=== PATIENT | female | born 1960 | race Caucasian/White ===

== ENCOUNTER 2022-07-07 11:46 | Inpatient (IN) | payer BC ==
[~2022-07-07] VITALS: Ht 162.6 cm; Wt 67.5 kg
[2022-07-07 12:32] LABS: COLLECTION METHOD CLEAN CATCH
[2022-07-07 12:40] LABS: HEMATOCRIT 43.9 % (37.0-47.0); HEMOGLOBIN 14.8 g/dl (12.5-16.0); MEAN CELL VOLUME 93 fl (80.0-100.0); MEAN CORPUSCULAR HEMOGLOBIN 31 pg (27-31); MEAN CORPUSCULAR HGB CONC 34 g/dl (33.0-37.0); MEAN PLATELET VOLUME 8.8 fl (7.4-10.4); PLATELET COUNT 300 K/mm3 (130-400); RED BLOOD COUNT 4.74 M/mm3 (4.10-5.30); REDCELL DISTRIBUTION WIDTH-CV 11.7 % (11.5-14.5)
[2022-07-07 12:57] LABS: ALBUMIN 2.7 gm/dL (3.4-4.8); BILIRUBIN,TOTAL 0.6 mg/dL (0.2-1.2); CALCIUM 9.1 mg/dL (8.4-10.2); CREATININE, serum 0.72 mg/dL (0.57-1.11); POTASSIUM 3.2 mmol/L (3.5-4.5); TOTAL PROTEIN 7.8 gm/dL (6.2-8.1)
[2022-07-07 13:04] LABS: URINE APPEARANCE Clear (CLEAR/HAZY); URINE BLOOD Negative (NEGATIVE); URINE COLOR Amber (YELLOW); URINE GLUCOSE Negative (NEGATIVE); URINE KETONE Negative (NEGATIVE); URINE NITRATE Negative (NEGATIVE); URINE PROTEIN(semi-quant) Negative (NEGATIVE); URINE UROBILINOGEN 0.2 E.U/dL (0.2-1.0)
[2022-07-07 13:12] LABS: MUCOUS Present (NOT PRESENT); URINE BACTERIA Rare /hpf (NONE SEEN); URINE RBC 20-50 /hpf (0-2)
[2022-07-07 13:18] LABS: BAND 1 % (0-10); BASOPHIL 1 % (0-2); EOSINOPHIL 2 % (0-4); LYMPHOCYTE 14 % (20.0-51.0); NEUTROPHILS 70 % (42.0-75.2); PLATELET ESTIMATE NORMAL (NORMAL)
[2022-07-07 16:00] VITALS: BP 134/74; PULSE 89; TEMP 98.3
[2022-07-07] MEDS ORDERED: DILANTIN 100MG100 MG PO (16:28)
[2022-07-07 17:22] VITALS: BP 134/76; PULSE 89; TEMP 98.3
--- NOTE | 2022-07-07 18:12 | NUR ---
Patient arrived to the unit from ER alert and oriented x4. IVF infusing on right A/C. VSS, Patient denies pain and requested to go the bathroom to void. Patient voided without difficulty. Patient oriented to room and how to use the call rapp.
[2022-07-07 19:35] VITALS: BP 125/70; PULSE 84; TEMP 97.5
[2022-07-07 23:41] VITALS: BP 99/61; PULSE 71; TEMP 97.8
--- NOTE | 2022-07-08 01:55 | NUR ---
SHIFT REPORT FROM DIANA CANTU. PATIENT IN BED ON ROOM ENTRY. C/O REFLUX/ CONSTANT BELCHING AND REQUESTS SOMETHING FOR THIS. DR. LOUIS IN TO SEE PATIENT AND DAILY PROTONIX STARTED. IVF AND IV ABX STARTED. DIET CHANGED TO CLEARS AND PATIENT TOLERATING WATER. DENIES PAIN OR PAIN CONTROL NEEDS. UP SEVERAL TIMES TO USE RESTROOM.
[2022-07-08 03:31] VITALS: BP 117/67; PULSE 68; TEMP 97.5
[2022-07-08 06:41] LABS: BASO # 0.1 K/mm3 (0.0-0.2); BASO % 0.6 % (0.0-2.0); EOS # 0.1 K/mm3 (0.0-0.7); EOS % 1.4 % (0.0-4.0); GRAN # 5.7 K/mm3 (1.4-6.5); HEMATOCRIT 40.3 % (37.0-47.0); HEMOGLOBIN 13.5 g/dl (12.5-16.0); LYMPH # 1.9 K/mm3 (1.2-3.4); LYMPH % 21.5 % (20.0-51.0); MEAN CELL VOLUME 93 fl (80.0-100.0); MEAN CORPUSCULAR HEMOGLOBIN 31 pg (27-31); MEAN CORPUSCULAR HGB CONC 34 g/dl (33.0-37.0); MEAN PLATELET VOLUME 9.2 fl (7.4-10.4); MONO # 0.9 K/mm3 (0.1-0.6); MONO % 9.8 % (1.7-9.3); PLATELET COUNT 282 K/mm3 (130-400); RED BLOOD COUNT 4.33 M/mm3 (4.10-5.30); REDCELL DISTRIBUTION WIDTH-CV 11.9 % (11.5-14.5)
[2022-07-08 07:06] LABS: ALBUMIN 2.3 gm/dL (3.4-4.8); BILIRUBIN,TOTAL 0.6 mg/dL (0.2-1.2); CALCIUM 8.7 mg/dL (8.4-10.2); CREATININE, serum 0.72 mg/dL (0.57-1.11); POTASSIUM 4.6 mmol/L (3.5-4.5); TOTAL PROTEIN 6.9 gm/dL (6.2-8.1)
[2022-07-08 08:00] VITALS: BP 125/72; PULSE 72; TEMP 98.2
--- NOTE | 2022-07-08 10:31 | NUR ---
SW met with patient to complete intake. Patient states that she lives in [facility] with her Abhi Toribio [phone]. Patient does not utilize DME, independent with ADL's, and does not utilize HH serives at this time. PCP is Dr. Archuleta, pharmacy is [facility], DPOA is and son Omi. Patient plans to return to her home upon DC. SW will continue to follow. DC plan: home
[2022-07-08 12:00] VITALS: BP 113/80; PULSE 71; TEMP 98.3
--- NOTE | 2022-07-08 12:56 | NUR ---
Proof Machine Operator offered prayer and support with patient.
[2022-07-08 16:04] VITALS: BP 105/79; PULSE 77; TEMP 98.4
[2022-07-08 19:46] VITALS: BP 121/77; PULSE 72; TEMP 97.8
--- NOTE | 2022-07-08 21:40 | NUR ---
SHIFT REPORT FROM DAY SHIFT RN. PATIENT IN BED ON ROOM ENTRY. DENIES PAIN. STATES HER INDIGESTION IS BETTER FROM YESTERDAY. IVF AND IV ZOSYN INFUSING WITHOUT ISSUE TO R WRIST IV. DENIES ADDITIONAL NEEDS. CALL LIGHT IN REACH.
[2022-07-08 23:27] VITALS: BP 122/68; PULSE 70; TEMP 98
--- NOTE | 2022-07-09 01:16 | NUR ---
Patient care, medication administration and nursing documentation occurred during a Daylight Savings Time Change.
[2022-07-09 04:07] VITALS: BP 111/66; PULSE 75; TEMP 97.9
[2022-07-09 06:38] LABS: BASO % 0.6 % (0.0-2.0); EOS # 0.1 K/mm3 (0.0-0.7); EOS % 1.4 % (0.0-4.0); GRAN # 4.9 K/mm3 (1.4-6.5); GRAN % 67.3 % (42.2-75.2); HEMATOCRIT 40.6 % (37.0-47.0); HEMOGLOBIN 13.9 g/dl (12.5-16.0); LYMPH # 1.5 K/mm3 (1.2-3.4); LYMPH % 20.6 % (20.0-51.0); MEAN CELL VOLUME 92 fl (80.0-100.0); MEAN CORPUSCULAR HEMOGLOBIN 31 pg (27-31); MEAN CORPUSCULAR HGB CONC 34 g/dl (33.0-37.0); MEAN PLATELET VOLUME 8.8 fl (7.4-10.4); MONO # 0.7 K/mm3 (0.1-0.6); MONO % 9.4 % (1.7-9.3); PLATELET COUNT 270 K/mm3 (130-400); RED BLOOD COUNT 4.42 M/mm3 (4.10-5.30); REDCELL DISTRIBUTION WIDTH-CV 11.8 % (11.5-14.5)
[2022-07-09 06:52] LABS: ALBUMIN 2.4 gm/dL (3.4-4.8); BILIRUBIN,TOTAL 0.6 mg/dL (0.2-1.2); CALCIUM 8.5 mg/dL (8.4-10.2); CREATININE, serum 0.67 mg/dL (0.57-1.11); POTASSIUM 3.4 mmol/L (3.5-4.5); TOTAL PROTEIN 6.7 gm/dL (6.2-8.1)
[2022-07-09 07:50] VITALS: BP 101/76; PULSE 74; TEMP 98.1
[2022-07-09 12:00] VITALS: BP 99/67; PULSE 77; TEMP 97.6
[2022-07-09 16:00] VITALS: BP 105/62; PULSE 80; TEMP 97.8
[2022-07-09 20:22] VITALS: BP 117/65; PULSE 68; TEMP 97.7
[2022-07-09 23:32] VITALS: BP 107/61; PULSE 63; TEMP 97.6
[2022-07-10 03:27] VITALS: BP 120/77; PULSE 65; TEMP 97.6
--- NOTE | 2022-07-10 06:32 | NUR ---
PT'S IV infiltrated, notified Dr Beltran per phone, ok to leave out. changed protonix to po, pt taking po fluids well, no NV. voiding and had sm bm this am. no pain reported. up ad vidya in room now that IV is out.
[2022-07-10 07:41] VITALS: BP 102/52; PULSE 82; TEMP 97.9
--- NOTE | 2022-07-10 09:29 | NUR ---
Patient sitting up in bed watching TV. Patient consumed 40% of breakfast. Patient denies discomfort at the abdomen and voice that she has been passing gas. Patient states she's doing better. PO antibiotic administered and patient tolerating well.
--- NOTE | 2022-07-10 09:34 | NUR ---
Patient awake in bed alert and oriented x4. Patient ate about 40% full liquid diet. Patient states she has been passing gas and denies of bloody stools. Patient denies pain and no needs at this time. PO antibiotic administered and patient tolerated it well.
--- NOTE | 2022-07-10 10:45 | NUR ---
Bren: [facility] Situation: Water Chaser stopped by room to follow up with pt Background: pt was resting and content Assessment: dermatologist was able to pray with pt and offer support. pt appreciated the visit Recommendation: dermatologist will follow up as needed
[2022-07-10 11:21] VITALS: BP 112/63; PULSE 79; TEMP 97.9
[2022-07-10 16:19] VITALS: BP 100/53; PULSE 81; TEMP 97.9
--- NOTE | 2022-07-10 18:32 | NUR ---
Patient up sitting in bed. No needs at this time.
[2022-07-10 20:24] VITALS: BP 106/58; PULSE 72; TEMP 97.5
[2022-07-10 23:15] VITALS: BP 108/63; PULSE 73; TEMP 97.7
[2022-07-11 04:48] VITALS: BP 113/66; PULSE 65; TEMP 97.8
--- NOTE | 2022-07-11 07:17 | NUR ---
Received shift report from the plant operator/shift supervisor nurse, Sujatha CANTU
[2022-07-11 07:49] VITALS: BP 118/73; PULSE 71; TEMP 97.6
--- NOTE | 2022-07-11 09:11 | NUR ---
Patient awake sitting up in bed watching TV. VSS. Patient denies abdominal pain, SOB. Patient states she had a small amount of formed bowel movement and denies of bloody content. Patients reports that she has been belching a lot. Patient consumed about 50% of breakfast and tolerated it well.
[2022-07-11 11:27] VITALS: BP 93/70; PULSE 77; TEMP 98
[2022-07-11] MEDS ORDERED: NORCO 325 MG-51 TAB PO (13:47)
[2022-07-11] MEDS ORDERED: AMOXICILLIN 8751 TAB PO (13:48)
[2022-07-11] MEDS ORDERED: PREVACID 15MG15 M1 PO (13:49)
--- NOTE | 2022-07-11 17:25 | NUR ---
Discharge instruction given, patient verbalized understanding.
== END 2022-07-11 15:45 | disposition home or self-care (01) | DRG 392 ==
LOC: COL.ER 11:46 → SURG 14:04
PROVIDERS: Nurse Practitioner Primary Care; ADMIT Surgery
DX: K57.20 Diverticulitis of large intestine with perforation and abscess without bleeding (principal); I25.10 Atherosclerotic heart disease of native coronary artery without angina pectoris; Z87.440 Personal history of urinary (tract) infections; Z86.73 Personal history of transient ischemic attack (TIA), and cerebral infarction without residual deficits
CPT/HCPCS: OP; C9113; G0378; J2543; J7030; J7120; Q9967